=== PATIENT | male | born 1995 | race Caucasian/White ===

== ENCOUNTER → 2021-07-12 13:57 | Outpatient (CLI) | payer OTHER, SELFPAY | PROVIDERS: Visit Provider Nurse Practitioner | DX: U07.1 COVID-19 (principal) | CPT/HCPCS: C9803; U0003; U0005 ==

== ENCOUNTER 2021-07-21 12:37 | Emergency (ER) | payer OTHER, SELFPAY ==
[2021-07-21 12:38] VITALS: BP 130/84; PULSE 70; RESP 16; TEMP 36.7; O2SAT 100; BMI 29.0
--- NOTE | 2021-07-21 12:46 | HMH.EDGENADL ---
ED Disposition Clinical Impression: Dental caries, Pain, dental Disposition: Home, Self-Care Condition on Discharge: Good Instructions: DI for Tooth Decay, DI for Dental Pain Additional Instructions: Penicillin as prescribed. Denver as needed for pain. Additional instructions for DENTAL PROBLEMS: See a dentist as soon as possible for further evaluation. Return immediately if you have an uncontrollable fever greater than 102 degrees, difficulty breathing or shortness of breath, persistent vomiting, or inability to swallow. Additional instructions for CONTROLLED SUBSTANCES: You have been prescribed a medication that is a controlled substance. Controlled substances include pain medications known as opiates and sedative nerve medications known as benzodiazepines. Tramadol, fioricet, and gabapentin are also controlled substances. Some common opiates include: Codeine (such as Tylenol #3) Hydrocodone (Vicodin, Lortab, Lorcet, Denver) Oxycodone (Percocet, Percodan, Oxycodone, Oxy IR) Some common benzodiazepines include: Diazepam (Valium) Lorazepam (Ativan) Alprazolam (Xanax) Clonazepam (Klonopin) Oxazepam (Serax) All of these controlled substances are highly addictive and frequently abused. Misuse can and frequently does lead to addiction as well as overdose and . Medication should be stored in a locked cabinet or other secure storage unit. Do not store the medication in a motor vehicle. Short term supplies, 3 days or less, are prescribed because of the highly addictive nature of the medication. Any of the controlled substance medication NOT taken should be disposed of properly and NOT SAVED. The recommended method of disposing of unused medications is: Place the medicines in a sealable plastic bag. If the medicine is a solid, crush it or add water to dissolve it. Add something undesirable (cat litter, coffee grounds, etc.) Dispose of sealed bag in household trash Do not flush or pour unused medicines down a sink or drain. Controlled substances should not be shared, given away or sold. Because of the addictive nature and frequent abuse, these medications are sometimes stolen. These medications should be kept in a safe place where they cannot be stolen. Do not keep them in your car or purse. Lost or stolen prescriptions for controlled substances WILL NOT BE REFILLED in this emergency department, regardless of whether a police report was filed. Prescriptions: Hydrocod/Acet 5/325 mg [Denver 5/325mg tablet] 1 tab PO Q6HP PRN #10 tab PRN Reason: Pain Transmission Status: Sent to [facility] Penicillin V Potassium 500 mg PO QID #40 tab Transmission Status: Pending to [facility] Referrals: Provider,Referral, [Primary Care Provider] - - Critical Care Critical Care Time: No Attestation: On , the high probability of a clinically significant, sudden or life threatening deterioration of the following system(s) required my full and direct attention, intervention and personal management. The time I documented below is in addition to time spent performing reported procedures but includes the following listed in this critical care notation. Medical Decision Making - Jostin Inquiry Pt receiving controlled substance: Yes Jostin was queried for this patient: Yes Risks and benefits of using a controlled substance: were discussed with pt by me Vital Signs: 07/21/21 12:38 Temperature 98.1 F Temperature Source Oral Pulse Rate [Right] 70 Respiratory Rate 16 Blood Pressure [Right Arm] 130/84 Blood Pressure Mean [Right Arm] 99 Blood Pressure Source [Right Arm] Automatic Cuff Blood Pressure Position [Right Arm] Sitting 02 Sat by Pulse Oximetry 100 Oxygen Delivery Method Room Air General Adult HPI - General Stated complaint: tooth pain Time Seen by Provider: 07/21/21 12:46 - History of Present Illness HPI narrative: Complains of tooth pain left rear most maxillary
[2021-07-21 13:05] VITALS: BP 130/84; PULSE 70; RESP 16; TEMP 36.7; O2SAT 98
== END 2021-07-21 13:06 | disposition home or self-care (01) ==
PROVIDERS: Emergency Provider Emergency Medicine
DX: K02.9 Dental caries, unspecified (principal); K08.89 Other specified disorders of teeth and supporting structures
CPT/HCPCS: 99281

== ENCOUNTER 2021-11-14 00:45 | Emergency (ER) | payer SELFPAY ==
[2021-11-14 00:46] VITALS: BP 149/84; PULSE 77; RESP 16; TEMP 37.1; O2SAT 98; BMI 22.8
[2021-11-14 01:22] LABS: Coronavirus 19, PCR Not Detected (NotDetected); Influenza A, PCR Not Detected (NotDetected); Influenza B, PCR Not Detected (NotDetected)
[2021-11-14 01:44] LABS: Strep Scrn Group A (Rapid) Negative (Negative)
--- NOTE | 2021-11-14 01:54 | HMH.EDURI ---
ED Disposition Clinical Impression: Bronchitis Tympanic membrane central perforation Qualifiers: Laterality: right Qualified Code(s): H72.01 - Central perforation of tympanic membrane, right ear Disposition: Home, Self-Care Condition on Discharge: Good Instructions: DI for Acute Bronchitis, DI for Tympanic Membrane Perforation-Adult Additional Instructions: use meds and call pcp and ent for follow up Prescriptions: Benzonatate [Benzonatate 100mg cap] 100 mg PO TID #21 cap Transmission Status: Pending to [facility] levoFLOXacin [Levaquin 500mg tab] 500 mg PO DAILY #7 tab Transmission Status: Pending to [facility] predniSONE [Prednisone 20mg Tab] 20 mg PO BID #10 tab Transmission Status: Pending to [facility] Referrals: Provider,Referral, MD [Primary Care Provider] - - Critical Care Critical Care Time: No Attestation: On 11/14/21, the high probability of a clinically significant, sudden or life threatening deterioration of the following system(s) required my full and direct attention, intervention and personal management. The time I documented below is in addition to time spent performing reported procedures but includes the following listed in this critical care notation. Medical Decision Making - Medical Records Medical records reviewed: Yes: I reviewed the patient's medical records. - Jostin Inquiry Pt receiving controlled substance: No Vital Signs: 11/14/21 00:46 11/14/21 02:04 Temperature 98.8 F 98.8 F Temperature Source Oral Pulse Rate 87 Pulse Rate [Right Radial] 77 Respiratory Rate 16 17 Blood Pressure 133/71 Blood Pressure [Right Arm] 149/84 H Blood Pressure Mean [Right Arm] 105 02 Sat by Pulse Oximetry 98 Oxygen Delivery Method Room Air Room Air - Lab Data Lab results reviewed: Yes: I reviewed the patient's lab results. Lab Results 11/14/21 00:50: Group A Strep Rapid Negative 11/14/21 00:50: SARS-CoV-2 (PCR) Not detected, Influenza A Untype (PCR) Not detected, Influenza Type B (PCR) Not detected Orders (Tests/Meds): ED MEDICATIONS Generic Name Dose Route Start Last Admin Trade Name Freq PRN Reason Stop Dose Admin Benzonatate 100 mg 11/14/21 02:15 Benzonatate 100mg Capsule PO 12/14/21 02:14 ONCE HUMBERTO Discontinued Medications Generic Name Dose Route Start Last Admin Trade Name Lizette PRN Reason Stop Dose Admin Acetaminophen/Codeine Phosphate 1 packet 11/14/21 01:58 11/14/21 02:02 Acetaminophen 300mg W/Codeine 30mg Take Home Pack (6) PO 11/14/21 01:59 1 packet ONCE ONE Administration Hydrocodone Bitart/Acetaminophen 1 tab 11/14/21 02:00 11/14/21 02:02 Hydrocodone/Apap 5/325 Mg Tablet PO 11/14/21 02:01 1 tab ONCE ONE Administration Levofloxacin 500 mg 11/14/21 01:58 11/14/21 02:02 Levofloxacin 500mg Tab PO 11/14/21 01:59 500 mg ONCE ONE Administration Prednisone 40 mg 11/14/21 01:58 11/14/21 02:03 Prednisone 20mg Tab PO 11/14/21 01:59 40 mg ONCE ONE Administration ORDERS Category Date Time Status Strep Screen Confirmation Stat Micro 11/14/21 00:50 Received Medical Decision Narrative: has bronchitis with perforated rt tm URI/Sore Throat HPI - General Chief Complaint: Upper Respiratory Infection Stated Complaint: Rt Ear Pain;cough,congestion Time Seen by Provider: 11/14/21 01:54 Mode of Arrival: Ambulatory Source of Information: Patient, Medical Record Limitations: No Limitations Description of Symptoms (Recalled from ER Triage Doc. by RN): COUGH, CONGESTION, SNEEZING SINCE SUNDAY. PT STATES RIGHT EAR PAIN BEGAN AFTER A BIG SNEEZE AND HAS NOT STOPPED. PT REPORTS HE HAS BEEN TAKING HIS S/O PCN- AND OTC MEDS BUT STILL FEELS BAD. - History of Present Illness HPI Narrative: uri sx over the last week - has been on pcn from prev illness - has rt ear pain after cough Complaint: cough, nasal congestion Onset (ago): day(s) Duration: const
[2021-11-14 02:04] VITALS: BP 133/71; PULSE 87; RESP 17; TEMP 37.1; O2SAT 98
[2021-11-14 02:08] VITALS: BP 0/0; PULSE 0; RESP 0; TEMP -17.7; TEMP 0; O2SAT 98
== END 2021-11-14 02:15 | disposition home or self-care (01) ==
PROVIDERS: Emergency Provider Emergency Medicine
DX: H72.01 Central perforation of tympanic membrane, right ear (principal); H92.01 Otalgia, right ear; J06.9 Acute upper respiratory infection, unspecified; J40 Bronchitis, not specified as acute or chronic; Z20.822 Contact with and (suspected) exposure to COVID-19; Z79.52 Long term (current) use of systemic steroids; Z79.899 Other long term (current) drug therapy
CPT/HCPCS: 87430; 99283; C9803; U0003; U0005

== ENCOUNTER 2022-01-09 17:27 | Emergency (ER) | payer SELFPAY ==
[2022-01-09 17:51] VITALS: BP 128/68; PULSE 73; RESP 18; TEMP 36.8; O2SAT 97; BMI 29.9
--- NOTE | 2022-01-09 17:56 | HMH.EDUTC ---
[facility] [place] Clinical Impression: Sinusitis Qualifiers: Sinusitis location: unspecified location Chronicity: unspecified Qualified Code(s): J32.9 - Chronic sinusitis, unspecified Disposition: Home, Self-Care Condition on Discharge: Good Instructions: Sinusitis Additional Instructions: ? Start antibiotic today. Be sure to complete entire prescription even if feeling better ? Monitor temp. Tylenol every 4 hours as needed and / or ibuprofen every 6 hours as needed ( As long as your primary care physician has told you that it ok to take both. For fever/aches/pains ER if no less than 101 despite Tylenol or Motrin ? Humidifier/vaporizer or hot steamy shower *Start steroid today. Helps with inflammation therefore, cough and wheezing. Follow directions on the package. Reviewed side effects. Patient reports taking them before. Follow up IMMEDIATELY for new or worsening of symptoms OR no noticeable improvement over the next 48-72 hours. 911 immediately for any life threatening symptoms such as chest pain or difficulty breathing Prescriptions: methylPREDNISolone [Medrol 4mg tab] 4 mg PO DIRECTED #21 tab Transmission Status: Pending to [facility] Azithromycin [Z-Souleymane 250mg Tab] 250 mg PO DIRECTED #6 tab Transmission Status: Pending to [facility] Referrals: Provider,Referral, MD [Primary Care Provider] - As needed Forms: Work/School Release Time of Disposition: 17:58 Medical Decision Making - Jostin Inquiry Pt receiving controlled substance: No Jostin was queried for this patient: No Vital Signs: 01/09/22 17:51 Temperature 98.2 F Temperature Source Oral Pulse Rate [Left] 73 Respiratory Rate 18 Blood Pressure [Right Arm] 128/68 Blood Pressure Mean [Right Arm] 88 02 Sat by Pulse Oximetry 97 [facility] [place]PI - General Stated complaint: congestion Time Seen by Provider: 01/09/22 17:56 Description of Symptoms (Recalled from Triage Doc. by RN): patient comes in with headache, sinus drainage. symptoms began last sunday HEENT Symptoms (Recalled from RN notes): Yes Resp Symptoms (Recalled from RN notes): Yes Skin Symptoms (Recalled from RN notes): No MS Symptoms (Recalled from RN notes): No Functional Status (Recalled from RN notes): n/a - History of Present Illness Provider Complaint: Patient states that he started feeling bad last week States that he has been having sinus congestion and pressure along with headache State that it has continued to get worse and he was unable to go to work today so he came in to get checked out - Related Data Previous Rx's Medication Instructions Recorded Hydrocod/Acet 5/325 mg [[place]ola 1 tab PO Q6HP PRN #10 tab 07/21/21 5/325mg tablet] Penicillin V Potassium 500 mg PO QID #40 tab 07/21/21 Benzonatate [Benzonatate 100mg 100 mg PO TID #21 cap 11/14/21 cap] levoFLOXacin [Levaquin 500mg 500 mg PO DAILY #7 tab 11/14/21 tab] predniSONE [Prednisone 20mg 20 mg PO BID #10 tab 11/14/21 Tab] Azithromycin [Z-Souleymane 250mg Tab] 250 mg PO DIRECTED #6 tab 01/09/22 methylPREDNISolone [Medrol 4mg 4 mg PO DIRECTED #21 tab 01/09/22 tab] Allergies Allergy/AdvReac Type Severity Reaction Status Date / Time No Known Allergies Allergy Verified 01/09/22 17:55 - Worker's Comp Is this a Worker's Comp case?: No [facility] History - Hepatitis A Screen Attestation statement:: This patient has been screened for Hepatitis A risk factors. I have reviewed the patient's past medical history: Yes ROS Obtained: Yes All systems reviewed & no additional complaints, Yes Systems reviewed as appropriate & no additional complaints - Constitutional Constitutional: Reports system reviewed and no additional complaints, except as docu, Reports headache(s) - ENT Ears, Nose, Mouth, and Throat: Reports system reviewed and no additional complaints, except as docu, Reports sinus pain, Reports sinus pressure - Cardiovascular Cardiovascular: Reports sy
[2022-01-09 18:01] VITALS: BP 128/68; PULSE 73; RESP 18; TEMP 36.8
== END 2022-01-09 18:11 | disposition home or self-care (01) ==
PROVIDERS: Emergency Provider Nurse Practitioner
DX: J32.9 Chronic sinusitis, unspecified (principal)
CPT/HCPCS: 99212; G0463

== ENCOUNTER 2022-06-03 00:48 | Emergency (ER) | payer SELFPAY ==
[2022-06-03 02:05] VITALS: BP 123/82; PULSE 88; RESP 18; TEMP 36.8; O2SAT 98; BMI 23.0
[2022-06-03 02:25] LABS: Coronavirus 19, PCR Not Detected (NotDetected); Influenza A, PCR Not Detected (NotDetected); Influenza B, PCR Not Detected (NotDetected)
--- NOTE | 2022-06-03 03:24 | HMH.EDURI ---
Discharge Plan Disposition Patient Disposition: Home, Self-Care Prescriptions Prescriptions: New azithromycin [azithromycin] 250 mg tablet 250 mg PO DIRECTED Qty: 6 0RF Rx Instructions: Take two (2) tablets on day #1, then one (1) tablet day #2 thru #5 benzonatate 100 mg Capsule 100 mg PO Q8H Qty: 20 0RF prednisone [prednisone] 20 mg tablet 20 mg PO BID Qty: 10 0RF No Action hydrocodone-acetaminophen 1 TAB tablet 1 tab PO Q6HP PRN (Reason: Pain) Qty: 10 0RF penicillin V potassium 500 MG tablet 500 mg PO QID Qty: 40 0RF prednisone 20 MG tablet 20 mg PO BID Qty: 10 0RF levofloxacin 500 MG tablet 500 mg PO DAILY Qty: 7 0RF benzonatate 100 MG capsule 100 mg PO TID Qty: 21 0RF azithromycin 250 MG tablet 250 mg PO DIRECTED Qty: 6 0RF Rx Instructions: Take two (2) tablets on day #1, then one (1) tablet day #2 thru #5 methylprednisolone 4 MG tablet 4 mg PO DIRECTED Qty: 21 0RF Rx Instructions: Take as directed on package instructions Referrals Follow up/Referrals: Jackie Strickland APRN [Primary Care Provider] - See instructions Discharge ED Provider: Robert Lao URI/Sore Throat HPI General Chief Complaint: Upper Respiratory Infection Stated Complaint: Drainage since before Time Seen by Provider: 06/03/22 03:25 Mode of Arrival: Ambulatory Source of Information: Patient and Medical Record Limitations: No Limitations Description of Symptoms (Recalled from ER Triage Doc. by RN): pt c/o sinus pressure drainage and cough since . States that this morning he began to have an ache in the back of his head but does not believe it to be a headache because it isn't on the top of his head. History of Present Illness HPI Narrative: uri sx over the last few days with sinus congestion MD Complaint: cough and nasal congestion Onset (ago): day(s) Duration: intermittent Severity: moderate Able to tolerate fluids by mouth: Yes Context: sick contacts Associated symptoms: headache Related Data Previous Rx's Medication Instructions Recorded hydrocodone 5 mg-acetaminophen 325 1 tab PO Q6HP PRN Pain #10 tabs 07/21/ mg tablet penicillin V potassium 500 mg 500 mg PO QID #40 tabs 07/21/21 tablet benzonatate 100 mg capsule 100 mg PO TID #21 caps 11/14/21 levofloxacin 500 mg tablet 500 mg PO DAILY #7 tabs 11/14/21 prednisone 20 mg tablet 20 mg PO BID #10 tabs 11/14/21 azithromycin 250 mg tablet 250 mg PO DIRECTED #6 tabs 01/09/22 methylprednisolone 4 mg tablet 4 mg PO DIRECTED #21 tabs 01/09/22 azithromycin 250 mg tablet 250 mg PO DIRECTED #6 tabs 06/03/22 benzonatate 100 mg capsule 100 mg PO Q8H #20 caps 06/03/22 prednisone 20 mg tablet 20 mg PO BID #10 tabs 06/03/22 Allergies Allergy/AdvReac Type Severity Reaction Status Date / Time No Known Allergies Allergy Verified 01/09/22 17:55 [facility] Disclaimer: The information contained in this section may have been updated after the patient was seen, as this information can be updated by other users. Social History Smoking Status: Current every day smoker alcohol intake: never current occupational status: employed Travel in the last 8 weeks: None ROS Obtained: Yes All systems reviewed & no additional complaints except as documented Physical Exam General General appearance: alert Head Head exam: normocephalic Eye Eye exam: Present PERRL and EOMI ENT ENT exam: Present normal oropharynx, mucous membranes moist and TM's normal bilaterally Neck Neck exam: Absent trachea midline Respiratory Respiratory exam: Present normal lung sounds bilaterally; Absent respiratory distress Cardiovascular Cardiovascular exam: Present regular rate Abdominal Exam Abdominal exam: Present soft Extremities Exam Extremities exam: Present full ROM Neurological Exam Neurological exam: Present alert, oriented X3 and CN II-XII intact; Absent motor sensory deficit
[2022-06-03 03:51] VITALS: BP 120/80; PULSE 82; RESP 18; TEMP 36.6; O2SAT 99
== END 2022-06-03 03:55 | disposition home or self-care (01) ==
PROVIDERS: Emergency Provider Emergency Medicine; PCP Nurse Practitioner
DX: J06.9 Acute upper respiratory infection, unspecified (principal); R05.9 Cough, unspecified; R09.81 Nasal congestion; R51.9 Headache, unspecified; M54.9 Dorsalgia, unspecified; Z20.822 Contact with and (suspected) exposure to COVID-19; F17.200 Nicotine dependence, unspecified, uncomplicated; Z79.52 Long term (current) use of systemic steroids; Z79.899 Other long term (current) drug therapy
CPT/HCPCS: 99283; C9803; U0003; U0005

== ENCOUNTER 2023-09-03 15:48 | Emergency (ER) | payer SELFPAY ==
[2023-09-03 16:00] VITALS: BP 152/77; PULSE 77; RESP 18; TEMP 36.6; O2SAT 100; BMI 21.7
--- NOTE | 2023-09-03 16:18 | EXP.UTC ---
Discharge Plan Disposition Patient Disposition: Home, Self-Care Condition: Good Prescriptions Prescriptions: New azithromycin [Zithromax] 250 mg tablet 250 mg PO UD DOSE PK Qty: 6 0RF Rx Instructions: Take two (2) tablets today, then one (1) tablet days #2 thru #5 methylprednisolone 4 mg Tablets,Dose Pack 4 mg PO DIRECTED 6 Days Qty: 21 0RF Rx Instructions: Take 1 pack as directed for 6 days [id number] [Bromfed DM] 2-30-10 mg/5 mL Syrup 5 ml PO Q6H PRN (Reason: Cough) Qty: 240 0RF ondansetron 4 mg Tablet,Disintegrating 4 mg PO Q8H PRN (Reason: Nausea) Qty: 12 0RF Referrals Follow up/Referrals: Provider,Referral, MD [Primary Care Provider] - See instructions Activity Restrictions/Add. Instructions Additional Instructions/Restrictions: Drink plenty of fluids. Take tylenol or ibuprofen for pain or fever. Take the medications as directed. Follow up with your regular doctor. GO TO THE ER FOR ANY WORSENING SYMPTOMS Clinical Impressions Clinical Impression: Sinusitis Stand Alone Forms Stand Alone Forms: Work/School Release Instructions Patient Instructions: DI for Sinusitis, Sinusitis Discharge ED Provider: Duran Moore [facility] General Stated complaint: sinus pressure nicholas ba nausea cough Mode of Arrival: Ambulatory Source of Information: Patient Limitations: No Limitations Time Seen by Provider: 09/03/23 16:18 Description of Symptoms (Recalled from Triage Doc. by RN): Pt's symptoms are sinus pressure, NICHOLAS, and productive cough. HEENT Symptoms (Recalled from RN notes): Yes Resp Symptoms (Recalled from RN notes): No Skin Symptoms (Recalled from RN notes): No MS Symptoms (Recalled from RN notes): No Functional Status (Recalled from RN notes): n/a History of Present Illness Provider Complaint: He states that for the past 4 days he has had sinus congestion, sinus drainage, and malaise. Related Data Previous Rx's Medication Instructions Recorded azithromycin 250 mg tablet 250 mg PO UD DOSE PK #6 tabs 09/03/23 (Zithromax) [id number] 5 ml PO Q6H PRN Cough #240 mL 09/03/23 2 mg-30 mg-10 mg/5 mL oral syrup (Bromfed DM) methylprednisolone 4 mg tablets in 4 mg PO DIRECTED 6 days #21 tabs 09/03/23 a dose pack ondansetron 4 mg disintegrating 4 mg PO Q8H PRN Nausea #12 tabs 09/03/23 tablet Allergies Allergy/AdvReac Type Severity Reaction Status Date / Time No Known Allergies Allergy Verified 09/03/23 16:11 Worker's Comp Is this a Worker's Comp case?: No [facility] Disclaimer: The information contained in this section may have been updated after the patient was seen, as this information can be updated by other users. Social History Smoking Status: Current every day smoker alcohol intake: never current occupational status: employed Travel in the last 8 weeks: None ROS Obtained: Yes All systems reviewed & no additional complaints except as documented Constitutional Constitutional: Reports poor appetite Eyes Eyes: Reports system reviewed and no additional complaints, except as documented ENT Ears, Nose, Mouth, and Throat: Reports as per HPI Cardiovascular Cardiovascular: Reports system reviewed and no additional complaints, except as documented and Denies chest pain Respiratory Respiratory: Denies shortness of breath, Denies chest congestion, Reports cough, Denies stridor and Denies wheezing Gastrointestinal Gastrointestingal: Reports system reviewed and no additional complaints, except as documented; Denies abdominal pain, diarrhea or vomiting Musculoskeletal Musculoskeletal: Reports system reviewed and no additional complaints, except as documented and Denies arthralgias Integumentary/Breasts Skin/Breast: Reports system reviewed and no additional complaints, except as documented and Denies rash Neurologic Neurologic: Denies paresthesias Allergic/Immunologic Allergic/Immunologic: Denies wheezing Physical Exam General General appearance: alert and in no apparent distress Eye Eye exam: Present normal appearance, PERRL and EOMI ENT ENT exam: Present mucous membranes moist and normal external ear exam Expanded ENT Exam External ear exam: Present normal external inspection TM/Canal exam: Bilateral TM: erythema and bulging Nose exam: Absent sinus tenderness Nasal speculum exam: Bilateral: normal Mouth exam: Present normal external inspection; Absent drooling Teeth exam: Present normal inspection Throat exam: Present tonsillar erythema and tonsillomegaly Neck Neck exam: Present normal inspection, full ROM and trachea midline; Absent tenderness, lymphadenopathy or thyromegaly Chest Chest inspection: Present normal inspection and symmetric chest wall rise; Absent tenderness or rash Respiratory Respiratory exam: Present normal lung sounds bilaterally; Absent respiratory distress, wheezes, stridor or accessory muscle use Cardiovascular Cardiovascular exam: Present regular rate, normal rhythm and normal heart sounds Abdominal Exam Abdominal exam: Present soft; Absent distention, tenderness, guarding, rebound or rigidity Extremities Exam Extremities exam: Present normal inspection, full ROM and normal capillary refill; Absent tenderness or calf tenderness Back Exam Back exam: Present normal inspection and full ROM; Absent tenderness Neurological Exam Neurological exam: Present alert and oriented X3 Psychiatric Psychiatric exam: Present normal affect and normal mood Skin Skin exam: Present warm, dry, intact and normal color Lymphatic Lymphatic Findings: no adenopathy Medical Decision Making Medical Records Medical records reviewed: No I reviewed the patient's medical records. Jostin Inquiry Pt receiving controlled substance: No Vital Signs: 09/03/23 16:00 Temperature 97.8 F Temperature Source Oral Pulse Rate [Right Radial] 77 Respiratory Rate 18 Blood Pressure [Right Arm] 152/77 H Blood Pressure Mean [Right Arm] 102 Blood Pressure Source [Right Arm] Automatic Cuff Blood Pressure Position [Right Arm] Sitting 02 Sat by Pulse Oximetry 100 Oxygen Delivery Method Room Air
[2023-09-03 16:42] VITALS: BP 152/77; PULSE 82; RESP 18; TEMP 36.6; O2SAT 100
== END 2023-09-03 16:42 | disposition home or self-care (01) ==
PROVIDERS: Emergency Provider Nurse Practitioner Family
DX: J01.90 Acute sinusitis, unspecified (principal); R51.9 Headache, unspecified; R11.0 Nausea; R05.9 Cough, unspecified; R09.81 Nasal congestion; F17.210 Nicotine dependence, cigarettes, uncomplicated
CPT/HCPCS: 99212; 99214; G0463

== ENCOUNTER 2024-05-01 20:25 | Emergency (ER) | payer SELFPAY ==
[2024-05-01 20:38] VITALS: BP 140/79; PULSE 87; RESP 16; TEMP 36.9; O2SAT 99; BMI 19.6
--- NOTE | 2024-05-01 20:45 | [facility].EDGENADL ---
Discharge Plan Disposition Patient Disposition: Home, Self-Care Prescriptions Prescriptions: New amoxicillin-pot clavulanate 875-125 mg tablet 1 tab PO BID Qty: 10 0RF ondansetron 4 mg tablet,disintegrating 4 mg PO Q8H PRN (Reason: nausea and vomiting) 4 Days Qty: 12 0RF No Action azithromycin [Zithromax] 250 mg tablet 250 mg PO UD DOSE PK Qty: 6 0RF Rx Instructions: Take two (2) tablets today, then one (1) tablet days #2 thru #5 methylprednisolone 4 mg Tablets,Dose Pack 4 mg PO DIRECTED 6 Days Qty: 21 0RF Rx Instructions: Take 1 pack as directed for 6 days [id number] [Bromfed DM] 2-30-10 mg/5 mL Syrup 5 ml PO Q6H PRN (Reason: Cough) Qty: 240 0RF ondansetron 4 mg Tablet,Disintegrating 4 mg PO Q8H PRN (Reason: Nausea) Qty: 12 0RF Referrals Follow up/Referrals: Jackie Strickland APRN [Primary Care Provider] - See instructions Activity Restrictions/Add. Instructions Additional Instructions/Restrictions: At this time it was felt you are safe to be discharged home. If new or worsening symptoms please do not hesitate to return the emergency department. Please take antibiotics and Zofran as prescribed. Clinical Impressions Clinical Impression: Pain, dental, Dental caries Print Language Print Language: Malay Discharge ED Provider: Aj Hendricks General Adult HPI General Stated complaint: toothache from broken tooth Time Seen by Provider: 05/01/24 20:32 History of Present Illness HPI narrative: Patient is a 28-year-old male with past medical history of dental caries who presents emergency department for evaluation of tooth pain. Patient is in the process of switching health insurance and being evaluated by an oral surgeon for dental pain for which multiple teeth will likely need to be extracted. Over the last week he has had intermittent pain and due to new onset nausea and slightly worsening pain he was following precautions from his oral surgeon presents here for continued evaluation. No other acute complaints at this time Related Data Previous Rx's ?Medication ?Instructions ?Recorded azithromycin 250 mg tablet 250 mg PO UD DOSE PK #6 tabs 09/03/23 (Zithromax) lrmfsinxebmmvpk-dehlgmidnaglgap-FC 5 ml PO Q6H PRN Cough #240 mL 09/03/23 2 mg-30 mg-10 mg/5 mL oral syrup (Bromfed DM) methylprednisolone 4 mg tablets in 4 mg PO DIRECTED 6 days #21 tabs 09/03/23 a dose pack ondansetron 4 mg disintegrating 4 mg PO Q8H PRN Nausea #12 tabs 09/03/23 tablet amoxicillin 875 mg-potassium 1 tab PO BID Dental Caries #10 tabs 05/01/24 clavulanate 125 mg tablet ondansetron 4 mg disintegrating 4 mg PO Q8H PRN nausea and 05/01/24 tablet vomiting 4 days #12 tabs Allergies Allergy/AdvReac Type Severity Reaction Status Date / Time No Known Allergies Allergy Verified 09/03/23 16:11 [facility] Disclaimer: The information contained in this section may have been updated after the patient was seen, as this information can be updated by other users. Medical History (Updated 05/01/24 @ 20:46 by Dalila Walter RN) Appendicitis Social History Smoking Status: Current every day smoker alcohol intake: never current occupational status: employed Travel in the last 8 weeks: None Other Medical History Have you received the Flu Vaccine for this season: No Have you received the Pneumonia Vaccine: No ROS Obtained: Yes Systems reviewed as appropriate & no additional complaints except as documented Physical Exam General General appearance: alert and in no apparent distress Head Head exam: atraumatic and normocephalic Eye Eye exam: Present PERRL ENT ENT exam: Present mucous membranes moist and other (Patient has multiple dental caries in the maxillary and mandibular teeth, some of which have eroded through to his root. No periapical fluctuance, no asymmetric swelling of the pharyngeal tonsils, no trismus, no elevation or woody floor of the mouth.) Neck Neck exam: Present normal inspection Chest Chest inspection: Present normal inspection and symmetric chest wall rise Respiratory Respiratory exam: Absent respiratory distress Cardiovascular Cardiovascular exam: Present regular rate and normal rhythm Abdominal Exam Abdominal exam: Present soft; Absent guarding Extremities Exam Extremities exam: Present normal inspection Neurological Exam Neurological exam: Present alert Psychiatric Psychiatric exam: Present normal affect Skin Skin exam: Present warm and dry Medical Decision Making Medical Records Screening: Per USPSTF and CDC recommendations, given the prevalence of disease in our region, it is our hospital?s policy to screen for HIV and viral Hepatitis for all patients aged 18 and over and those with ongoing risk factors. Jostin Inquiry Pt receiving controlled substance: No Orders (Tests/Meds): ED MEDICATIONS Generic Name Dose Route Start Last Admin Trade Name Freq PRN Reason Stop Dose Admin Lidocaine HCl 15 ml 05/01/24 20:42 Lidocaine 2% Viscous Arlene 15ml Udc PO 05/01/24 20:43 ONCE ONE Ondansetron HCl 4 mg 05/01/24 20:42 Ondansetron 4mg Odt SL 05/01/24 20:43 ONCE ONE Medical Decision Narrative: In summary patient is a 28-year-old male past medical history described above who presents to the emergency department for evaluation of tooth pain. Patient is hemodynamically stable nontoxic-appearing upon arrival, afebrile. Patient has multiple dental caries without evidence of abscess, he does not have Jonathan's on my physical exam, no peritonsillar abscess, is ranging his neck freely without trismus. Given this symptomatic care will be conducted with dental balls and patient is appropriate for discharge at this time. He will be discharged with Augmentin out of an abundance of caution and Zofran for symptomatic control for which I suspect his tooth pain is severe enough to the point where it is causing nausea and he has a nonconcerning history or physical exam otherwise. Critical Care Critical Care Time Critical Care Time: No
[2024-05-01] MEDS: LIDOCAINE 2% VISCOUS SOL 15ML UDC 15 ML PO (20:52)
[2024-05-01] MEDS: ONDANSETRON 4MG ODT 4 MG SL (20:52)
[2024-05-01 20:53] VITALS: BP 158/84; PULSE 92; RESP 18; TEMP 36.5; O2SAT 100
== END 2024-05-01 20:59 | disposition home or self-care (01) ==
PROVIDERS: Emergency Provider Emergency Medicine; PCP Nurse Practitioner
DX: K02.9 Dental caries, unspecified (principal); K08.89 Other specified disorders of teeth and supporting structures
CPT/HCPCS: 99283; Q0162